=== PATIENT | male | born 1985 | race Caucasian/White ===

== ENCOUNTER 2018-11-17 00:10 | Emergency (ER) | payer MEDICAID ==
[~2018-11-17] VITALS: Ht 180.3 cm; Wt 124.7 kg
[2018-11-17 00:21] VITALS: BP_SYST 159
[2018-11-17] MEDS ORDERED: LORazepam 2 MG/ML VIAL (FOR ER USE) IVP ONE (00:30)
[2018-11-17] MEDS ORDERED: KETOROLAC TROMETHAMINE 30 MG VIAL IVP ONE (00:30)
[2018-11-17 01:46] LABS: BASOPHILS # (AUTO) 0.1 K/uL (0.0-0.2); BASOPHILS % (AUTO) 0.5 % (0.0-2.0); EOSINOPHILS # (AUTO) 0.1 K/uL (0.0-0.4); EOSINOPHILS % (AUTO) 0.5 % (0.0-4.0); HEMATOCRIT 46.4 % (36-54); HEMOGLOBIN 15.6 g/dL (14.0-18.0); LYMPHOCYTES # (AUTO) 1.6 K/uL (1.0-5.5); LYMPHOCYTES % (AUTO) 14.2 % (20.5-51.5); MEAN CORPUSCULAR HEMOGLOBIN 28 pg (27-31); MEAN CORPUSCULAR HGB CONC 34 % (32-36); MEAN CORPUSCULAR VOLUME 84 fL (79.0-98.0); MONOCYTES # (AUTO) 0.5 K/uL (0.0-1.0); MONOCYTES % (AUTO) 4.7 % (1.7-9.3); NEUTROPHILS % (AUTO) 80.1 % (40.0-70.0); PLATELET COUNT (AUTO) 269 K/uL (130-430); RED BLOOD CELL COUNT(AUTO) 5.53 MIL/uL (4.2-6.2); RED CELL DISTRIBUTION WIDTH 11.9 % (9.0-15.0); WHITE BLOOD COUNT (AUTO) 11.3 K/uL (4.8-10.8)
[2018-11-17 02:03] LABS: CALCIUM 9.1 mg/dL (8.4-11.0); CREATININE 0.79 mg/dL (0.55-1.30); POTASSIUM 3.5 mmol/L (3.5-5.1)
[2018-11-17 02:20] LABS: ALBUMIN 4.2 g/dL (3.4-4.8); TOTAL BILIRUBIN 1.1 mg/dL (0.0-1.0)
[2018-11-17 02:22] LABS: PROTHROMBIN TIME 10.4 SECS (9.5-12.5)
[2018-11-17 02:53] VITALS: BP_SYST 162
== END 2018-11-17 02:53 | disposition home or self-care (01) ==
LOC: SED 00:10
DX: R07.89 Other chest pain (principal); R06.00 Dyspnea, unspecified; I10 Essential (primary) hypertension
CPT/HCPCS: 36415; 71045; 80053; 82550; 83880; 84484; 85025; 85610; 85730; 93005; 96374; 96375; 99284; J1885; J2060

== ENCOUNTER 2021-06-29 21:51 | Emergency (ER) | payer MEDICAID ==
[~2021-06-29] VITALS: Ht 180.3 cm; Wt 117.9 kg
[2021-06-29 21:55] VITALS: BP_SYST 150
--- NOTE | 2021-06-29 21:55 | NUR ---
PT TO REMAIN IN ER LOBBY UNTIL ER BED BECOMES AVAILABLE.
--- NOTE | 2021-06-30 00:05 | NUR ---
Patient to ER bed 02 to gown for evaluation. Side rails up. Report given to ALEJANDRO Barragan
--- NOTE | 2021-06-30 00:17 | NUR ---
Pt walked in c/o intermittent MARIN x1 week, +dizziness, Nausea, light sensitivity.
--- NOTE | 2021-06-30 00:40 | NUR ---
ER at bedside examining patient.
--- NOTE | 2021-06-30 00:55 | NUR ---
# 20 gauge angiocath placed to LAC. Use of asceptic technique. Opsite placed over site. Blood return noted. Flushed with 10 cc of normal saline. No evidence of infiltration noted. Patient tolerated well.
[2021-06-30] MEDS ORDERED: PROCHLORPERAZINE EDISYLATE 10 MG/2 ML VIAL IVP ONE (01:00)
[2021-06-30] MEDS ORDERED: DEXAMETHASONE SOD PHOSPHATE 10 MG/ML VIAL IVP ONE (01:00)
[2021-06-30] MEDS ORDERED: MORPHINE 2 MG/ML INJ. SYRINGE IVP ONE (01:00)
--- NOTE | 2021-06-30 02:10 | NUR ---
Patient resting quietly. No acute distress noted. VSS
[2021-06-30] MEDS ORDERED: PHE25 PO (03:09)
[2021-06-30] MEDS ORDERED: BUTA1CAP43 PO ×2 (03:09→03:11)
[2021-06-30] MEDS ORDERED: PROM12.513 PO (03:11)
[2021-06-30 03:30] VITALS: BP_SYST 150
--- NOTE | 2021-06-30 03:30 | NUR ---
Patient given written and verbal discharge instructions and verbalizes understanding. ER MD discussed with patient the results and treatment provided. Patient in stable condition. ID arm band removed. IV catheter removed intact and dressing applied, no active bleeding. Rx of FIORICET, PROMETHAZINE given. Patient educated on pain management and to follow up with PMD. Pain Scale 0/10. Opportunity for questions provided and answered. Medication side effect fact sheet provided.
== END 2021-06-30 00:30 | disposition home or self-care (01) ==
LOC: SED 21:51
DX: G43.909 Migraine, unspecified, not intractable, without status migrainosus (principal); I10 Essential (primary) hypertension
CPT/HCPCS: 70450-TC; 76376; 96374; 96375; 99284

== ENCOUNTER 2021-11-06 01:21 | Emergency (ER) | payer MEDICAID ==
[~2021-11-06] VITALS: Ht 180.3 cm; Wt 117.9 kg
[~2021-11-06 01:21] MED LIST: BUTA1CAP43 PO; PHE25 PO; PROM12.513 PO
[2021-11-06 01:25] VITALS: BP_SYST 168
--- NOTE | 2021-11-06 01:25 | NUR ---
Patient ambulatory to bed 7 or evaluation
[2021-11-06] MEDS ORDERED: ASPIRIN 81 MG TAB.CHEW PO ONE (02:00)
[2021-11-06] MEDS ORDERED: NITROGLYCERIN 1 INCH (GM) OINT. TP ONE (02:15)
[2021-11-06] MEDS ORDERED: LORazepam 2 MG/ML VIAL IVP ONE (02:15)
[2021-11-06] MEDS ORDERED: AMLO5TAB4 PO (02:22)
--- NOTE | 2021-11-06 02:26 | NUR ---
PT CAME TO ER FOR CP STARTING IN THE MORNING. PT STATS HE HAS A HX OF ANXIETY AND WAS PRESCRIBED SOME MEDS FOR HIS ANXIETY BUT DOESNT TAKE THEM. HE STARTED HAVING IN THE MORNING OD 11/05/21. RATED AT AROUND 6/10 AND IT EVER WENT DOWN. A&OX4. 5/10 PAIN NOW
--- NOTE | 2021-11-06 02:30 | NUR ---
# 20 gauge angiocath placed to RAC. Use of asceptic technique. Opsite placed over site. Blood return noted. Blood for lab drawn from site. Flushed with 10 cc of normal saline. No evidence of infiltration noted. Patient tolerated well.
[2021-11-06 02:48] LABS: BASOPHILS % (AUTO) 0.3 % (0.0-2.0); EOSINOPHILS # (AUTO) 0.1 K/uL (0.0-0.4); EOSINOPHILS % (AUTO) 0.7 % (0.0-4.0); HEMATOCRIT 45.2 % (36-54); HEMOGLOBIN 15.6 g/dL (14.0-18.0); LYMPHOCYTES # (AUTO) 1.6 K/uL (1.0-5.5); LYMPHOCYTES % (AUTO) 21.6 % (20.5-51.5); MEAN CORPUSCULAR HEMOGLOBIN 28 pg (27-31); MEAN CORPUSCULAR HGB CONC 34 % (32-36); MEAN CORPUSCULAR VOLUME 82 fL (79.0-98.0); MONOCYTES # (AUTO) 0.6 K/uL (0.0-1.0); MONOCYTES % (AUTO) 8.1 % (1.7-9.3); NEUTROPHILS # (AUTO) 5.3 K/uL (1.8-7.7); NEUTROPHILS % (AUTO) 69.3 % (40.0-70.0); PLATELET COUNT (AUTO) 242 K/uL (130-430); RED BLOOD CELL COUNT(AUTO) 5.55 MIL/uL (4.2-6.2); WHITE BLOOD COUNT (AUTO) 7.6 K/uL (4.8-10.8)
[2021-11-06 03:04] LABS: CALCIUM 9.1 mg/dL (8.4-11.0); CREATININE 0.87 mg/dL (0.55-1.30); POTASSIUM 3.7 mmol/L (3.5-5.1)
[2021-11-06 03:18] LABS: ALBUMIN 4.5 g/dL (3.4-4.8); TOTAL BILIRUBIN 0.9 mg/dL (0.0-1.0)
--- NOTE | 2021-11-06 03:30 | NUR ---
ER at bedside examining patient.
[2021-11-06] MEDS ORDERED: OMEP10SU2 PO (03:54)
[2021-11-06] MEDS ORDERED: AMLO2.5T50 PO (03:54)
--- NOTE | 2021-11-06 04:03 | NUR ---
Patient given written and verbal discharge instructions and verbalizes understanding. DR.D'AGOSTINO MCKENZIE JOYNER discussed with patient the results and treatment provided. Patient in stable condition. ID arm band removed. Rx of AMLODIPINE, OMEPRAZOLE given. Patient educated on pain management and to follow up with PMD. Pain Scale 0/10. Opportunity for questions provided and answered. Medication side effect fact sheet provided.
[2021-11-06 04:04] VITALS: BP_SYST 160
== END 2021-11-06 04:04 | disposition home or self-care (01) ==
LOC: SED 01:21
DX: I10 Essential (primary) hypertension (principal); R07.89 Other chest pain; Z79.899 Other long term (current) drug therapy
CPT/HCPCS: 36415; 71045; 80053; 84484; 85025; 93005; 96374; 99285; J2060

== ENCOUNTER 2021-11-11 18:50 | Emergency (ER) | payer MEDICAID ==
[~2021-11-11] VITALS: Ht 180.3 cm; Wt 120.2 kg
[~2021-11-11 18:50] MED LIST changes: +AMLO2.5T50 PO; +AMLO5TAB4 PO; -BUTA1CAP43 PO; +OMEP10SU2 PO; -PHE25 PO; -PROM12.513 PO
[2021-11-11 18:57] VITALS: BP_SYST 154
--- NOTE | 2021-11-11 19:02 | NUR ---
12 LEAD EKG DON IN TRIAGED PT PLACED IN HALLWAY BED
--- NOTE | 2021-11-11 19:10 | NUR ---
Patient to ER bed H1 to gown for evaluation. Side rails up.
--- NOTE | 2021-11-11 19:14 | NUR ---
Patient BIB by family from home. C/O generalized weakness x today. Patient reported, had weakness, and chest wall pain since 1700 PM today. A/O,X4, chest wall pain, pain rate 6/10, radiate to left arm, no numbness or tingling.
--- NOTE | 2021-11-11 19:55 | NUR ---
MCKENZIE Cook at bedside examining patient.
[2021-11-11] MEDS ORDERED: MAG HYDROX/AL HYDROX/SIMETH 30 ML, LIDOCAINE VISCOUS 2% 15ML (PO) 15 ML, DICYCLOMINE HC... PO ONE ×3 (20:00)
[2021-11-11] MEDS ORDERED: OMEP10SU2 PO (22:05)
[2021-11-11] MEDS ORDERED: ANT30 PO (22:05)
[2021-11-11 22:22] VITALS: BP_SYST 154
--- NOTE | 2021-11-11 22:22 | NUR ---
Patient given written and verbal discharge instructions and verbalizes understanding. ER MD discussed with patient the results and treatment provided. Patient in stable condition. ID arm band removed. Rx of Mylanta and Omeprazole given. Patient educated on pain management and to follow up with PMD. Pain Scale 0/10. Opportunity for questions provided and answered. Medication side effect fact sheet provided.
== END 2021-11-11 22:22 | disposition home or self-care (01) ==
LOC: SED 18:50
DX: M94.0 Chondrocostal junction syndrome [Tietze] (principal); K20.90 Esophagitis, unspecified without bleeding; I10 Essential (primary) hypertension; Z79.899 Other long term (current) drug therapy
CPT/HCPCS: 93005; 99283; J2001

== ENCOUNTER 2022-07-14 15:47 | Emergency (ER) | payer MEDICAID ==
[~2022-07-14] VITALS: Ht 180.3 cm; Wt 117.9 kg
[2022-07-14 15:47] VITALS: BP_SYST 140
[~2022-07-14 15:47] MED LIST changes: +ANT30 PO
--- NOTE | 2022-07-14 15:47 | NUR ---
Patient to ER bed 02 to gown for evaluation. Side rails up. Report given to ALEJANDRO NORTH
--- NOTE | 2022-07-14 16:09 | NUR ---
ER at bedside examining patient.
[2022-07-14] MEDS ORDERED: KETOROLAC TROMETHAMINE 60 MG/2 ML VIAL IM ONE (16:15)
[2022-07-14] MEDS ORDERED: NAPR-690 PO (17:06)
[2022-07-14 17:13] VITALS: BP_SYST 140
--- NOTE | 2022-07-14 17:13 | NUR ---
Patient given written and verbal discharge instructions and verbalizes understanding. ER MD discussed with patient the results and treatment provided. Patient in stable condition. ID arm band removed. Rx of naproxen given. Patient educated on pain management and to follow up with PMD. Pain Scale 0/10 Opportunity for questions provided and answered. Medication side effect fact sheet provided.
== END 2022-07-14 17:13 | disposition home or self-care (01) ==
LOC: SED 15:47
DX: S33.5XXA Sprain of ligaments of lumbar spine, initial encounter (principal); I10 Essential (primary) hypertension; R53.1 Weakness; X58.XXXA Exposure to other specified factors, initial encounter; Y93.89 Activity, other specified; Y92.89 Other specified places as the place of occurrence of the external cause; Y99.8 Other external cause status
CPT/HCPCS: 99283; 72100; 96372; J1885

== ENCOUNTER 2023-10-26 17:13 | Emergency (ER) | payer MEDICAID ==
[~2023-10-26] VITALS: Ht 180.3 cm; Wt 122.5 kg
[~2023-10-26 17:13] MED LIST changes: +NAPR-690 PO
[2023-10-26 17:15] VITALS: BP_SYST 136; PULSE 84; RESP 17; TEMP 97; O2SAT 98
[2023-10-26] MEDS ORDERED: SUMAtriptan SUCCINATE 6 MG/0.5 ML VIAL SUBCUT ONE (18:45)
[2023-10-26] MEDS ORDERED: METOCLOPRAMIDE HCL 10 MG TABLET PO ONE (18:45)
[2023-10-26] MEDS ORDERED: KETOROLAC TROMETHAMINE 30 MG VIAL IM ONE (18:45)
[2023-10-26 19:30] LABS: BASOPHILS % (AUTO) 0.2 % (0.0-2.0); EOSINOPHILS % (AUTO) 0.2 % (0.0-4.0); HEMATOCRIT 47.7 % (36-54); LYMPHOCYTES # (AUTO) 1.6 K/uL (1.0-5.5); LYMPHOCYTES % (AUTO) 12.7 % (20.5-51.5); MEAN CORPUSCULAR HEMOGLOBIN 28 pg (27-31); MEAN CORPUSCULAR HGB CONC 34 % (32-36); MEAN CORPUSCULAR VOLUME 82 fL (79.0-98.0); MONOCYTES # (AUTO) 0.9 K/uL (0.0-1.0); MONOCYTES % (AUTO) 7.1 % (1.7-9.3); NEUTROPHILS # (AUTO) 10.1 K/uL (1.8-7.7); NEUTROPHILS % (AUTO) 79.8 % (40.0-70.0); PLATELET COUNT (AUTO) 325 K/uL (130-430); RED BLOOD CELL COUNT(AUTO) 5.82 MIL/uL (4.2-6.2); RED CELL DISTRIBUTION WIDTH 13.4 % (9.0-15.0); WHITE BLOOD COUNT (AUTO) 12.7 K/uL (4.8-10.8)
[2023-10-26 19:49] LABS: CALCIUM 9.5 mg/dL (8.4-11.0); CREATININE 0.78 mg/dL (0.55-1.30); POTASSIUM 3.8 mmol/L (3.5-5.1)
[2023-10-26] MEDS ORDERED: ACET325T53 PO (20:27)
[2023-10-26] MEDS ORDERED: [UNRECOGNIZED DRUG - CODE] PO (20:30)
[2023-10-26] MEDS ORDERED: LIDO30CR TP (20:35)
[2023-10-26] MEDS ORDERED: CYCL10TA24 PO (20:35)
[2023-10-26] MEDS ORDERED: ONDA-8 TL (20:37)
[2023-10-26 20:44] LABS: INFLUENZA TYPE A Negative (NEGATIVE); INFLUENZA TYPE B NEGATIVE (NEGATIVE)
[2023-10-26 20:50] VITALS: BP_SYST 159; PULSE 75; RESP 20; TEMP 96.7; O2SAT 98
== END 2023-10-26 20:50 | disposition home or self-care (01) ==
LOC: SED 17:13
DX: G44.86 Cervicogenic headache (principal); G43.909 Migraine, unspecified, not intractable, without status migrainosus; I10 Essential (primary) hypertension; Z79.899 Other long term (current) drug therapy; Z20.822 Contact with and (suspected) exposure to COVID-19
CPT/HCPCS: 99284; 87426; 80048; 85025; 36415; 96372; 87804 ×2; J8597; J1885; J3030